=== PATIENT | male | born 1945 | race Caucasian/White ===

== ENCOUNTER 2021-05-13 15:19 | Emergency (ER) | payer OTHER ==
[2021-05-13] MEDS ORDERED: Sodium Chloride 0.9% 10 ML Syringe FLUSH PRN (16:00)
[2021-05-13] MEDS ORDERED: 50% Dextrose in Water 50 ML Syringe IVPUSH STA (16:03)
[2021-05-13] MEDS ORDERED: Sodium Chloride 0.9% 1,000 ML IV SCH (16:15)
--- NOTE | 2021-05-13 16:38 | EDM.PDOC ---
ED HPI GENERAL MEDICAL PROBLEM - General Stated Complaint: DIFFICULTY BREATHING Time Seen by Provider: 05/13/21 15:25 Source of Information: Reports: Patient, Family History Limitations: Reports: Altered Mental Status - History of Present Illness INITIAL COMMENTS - FREE TEXT/NARRATIVE: Patient is a 75 YO WM who presented to the ED via EMS because of coughing, dyspnea and weakness. He has been coughing for 1 month now which is productive of whitish phlegm. The dyspnea was just for the past 3-4 days and is getting worse. He was hypoxemic with O2S of 87% on RA. He denies having any chest pain, nausea, vomiting. There is no fever, chills, changes in bowel movements or urinary symptoms. - Related Data Allergies Allergy/AdvReac Type Severity Reaction Status Date / Time No Known Allergies Allergy Verified 05/13/21 17:33 Home Meds: Home Meds glipiZIDE [Glucotrol XL] 1 tab PO DAILY 05/13/21 [History] metFORMIN [Glucophage] 1 tab PO DAILY 05/13/21 [History] ED ROS GENERAL - Review of Systems Review Of Systems: See Below Constitutional: Reports: Weakness HEENT: Reports: No Symptoms Respiratory: Reports: Shortness of Breath, Cough Cardiovascular: Reports: No Symptoms, Chest Pain Endocrine: Reports: Low Glucose GI/Abdominal: Reports: No Symptoms : Reports: No Symptoms Musculoskeletal: Reports: No Symptoms Skin: Reports: No Symptoms Neurological: Reports: Confusion Psychiatric: Reports: No Symptoms Hematologic/Lymphatic: Reports: No Symptoms ED EXAM, GENERAL - Physical Exam Exam: See Below Exam Limited By: No Limitations General Appearance: Other (comfused) Ears: Normal External Exam, Normal Canal Nose: Normal Inspection, Normal Mucosa, No Blood Throat/Mouth: Normal Inspection, Normal Lips, Normal Teeth Head: Atraumatic, Normocephalic Neck: Normal Inspection, Supple, Non-Tender, Full Range of Motion Respiratory/Chest: Decreased Breath Sounds, Rhonchi Cardiovascular: Normal Peripheral Pulses, Regular Rate, Rhythm, No Edema, No JVD, No Murmur GI/Abdominal: Normal Bowel Sounds, Soft, Non-Tender, No Organomegaly Extremities: Normal Inspection, Normal Range of Motion, Non-Tender, No Pedal Edema Neurological: Alert, Oriented, CN II-XII Intact, Normal Cognition Skin Exam: Warm #1 Interpretation EKG Date: 05/13/21 Time: 15:24 Rhythm: NSR Rate (Beats/Min): 96 Zenia: Normal P-Wave: Present QRS: Normal ST-T: Normal QT: Normal Comparison: NA - No Prior EKG EKG Interpretation Comments: NSR PAC's Course - Vital Signs Text/Narrative:: Lab/EKG/CXR result was reviewed and discussed with patient NS 1 L in 2 hours O2 VNC D50 1 amp IV x1 Zosyn 4.5 gm IV Code Status: Full code Case discussed with Dr Fisher who agreed with athe above plan of care - Orders/Labs/Meds Orders: Active Orders 24 hr Category Date Time Status EKG Documentation Completion [RC] ASDIRECTED Care 05/13/21 16:02 Active Slater Catheter Insertion [Insert Urinary Catheter] [OM. Care 05/13/21 17:15 Ordered PC] Q24H Urinary Catheter Assessment [RC] QSHIFT Care 05/13/21 17:12 Active Chest 1V Frontal [CR] Stat Exams 05/13/21 16:00 Taken CORONAVIRUS COVID-19 MILLER [MOLEC] Stat Lab 05/13/21 17:26 Received CULTURE BLOOD [BC] Urgent Lab 05/13/21 16:20 Received CULTURE BLOOD [BC] Urgent Lab 05/13/21 16:30 Received Sodium Chloride 0.9% [Normal Saline] 1,000 ml Med 05/13/21 16:15 Active IV ASDIRECTED Sodium Chloride 0.9% [Saline Flush] Med 05/13/21 16:00 Active 10 ml FLUSH ASDIRECTED PRN Blood Culture x2 Reflex Set [OM.PC] Urgent Oth 05/13/21 16:00 Ordered Saline Lock Insert [OM.PC] Routine Oth 05/13/21 16:00 Ordered EKG 12 Lead [EK] Routine Ther 05/13/21 16:00 Ordered Medication Orders Sodium Chloride (Normal Saline) 1,000 mls @ 500 mls/hr IV ASDIRECTED KATIE Sodium Chloride (Sodium Chloride 0.9% 10 Ml Syringe) 10 ml FLUSH ASDIRECTED PRN PRN Reason: Keep Vein Open Labs: Laboratory Tests 05/13/21 05/13/21 05/13/21 Range/Units 15:58 16:20 16:20 WBC 10.4 H (3.2-10.1) x10-3/uL RBC 4.83 (3.90-5.90) x10(6)uL Hgb 15.5 (12.9-17.7) g/dL Hct 48.4 (38.3-50.1) % MCV 100.2 H (80.8-98.7) fL MCH 32.1 (27.0-33.3) pg MCHC 32.1 (28.7-35.3) g/dL RDW 16.0 H (12.4-15.0) % Plt Count 128 (117-477) x10(3)uL MPV 9.0 (6.7-11.0) fL Neut % (Auto) 75.6 H (40.3-71.8) % Lymph % (Auto) 15.2 L (15.8-45.3) % Carson % (Auto) 9.1 (5.5-15.2) % Eos % (Auto) 0.0 L (0.1-6.8) % Baso % (Auto) 0.1 L (0.3-3.8) % Neut # (Auto) 7.9 H (1.7-6.9) x10-3/uL Lymph # (Auto) 1.6 (0.5-4.5) x10-3/uL Carson # (Auto) 0.9 (0.0-1.2) x10-3/uL Eos # (Auto) 0.0 (0.0-0.6) x10-3/uL Baso # (Auto) 0.0 (0.0-0.3) x10-3/uL POC VBG pH (7.32-7.43) pH Units POC VBG pCO2 (41-51) mmHg POC VBG HCO3 (21-29) mmol/L VBG Base Excess (-2-3) mmol/L O2 Delivery Device Sodium 141 (135-145) mmol/L Potassium 5.0 (3.5-5.3) mmol/L Chloride 98 L (100-110) mmol/L Carbon Dioxide 29 (21-32) mmol/L BUN 103 H (7-18) mg/dL Creatinine 5.4 H* (0.70-1.30) mg/dL Est Cr Clr Drug Dosing TNP Estimated GFR (MDRD) 10 L (>60) BUN/Creatinine Ratio 19.1 (9-20) Glucose 157 H (80-116) mg/dL POC Glucose 58 L (80-116) mg/dL Lactic Acid (0.4-2.0) mmol/L Calcium 8.6 (8.6-10.2) mg/dL Total Bilirubin 1.2 (0.1-1.3) mg/dL AST 29 H (5-25) IU/L ALT 40 H (12-36) U/L Alkaline Phosphatase 73 (56-112) IU/L Troponin I (4.0-60.3) pg/mL C-Reactive Protein (0.5-0.9) mg/dL NT-Pro-B Natriuret Pep (<=125) pg/mL Total Protein 7.1 (6.0-8.0) g/dL Albumin 2.7 L (3.2-4.6) g/dL Globulin 4.4 g/dL Albumin/Globulin Ratio 0.6 Urine Color (YELLOW) Urine Appearance (CLEAR) Urine pH (5.0-6.5) Ur Specific [place] (1.010-1.025) Urine Protein (NEGATIVE) mg/dL Urine Glucose (UA) (NORMAL) mg/dL Urine Ketones (NEGATIVE) mg/dL Urine Occult Blood (NEGATIVE) Urine Nitrite (NEGATIVE) Urine Bilirubin (NEGATIVE) Urine Urobilinogen (NEGATIVE) mg/dL Ur Leukocyte Esterase (NEGATIVE) U Hyaline Cast (Auto) (NS) Urine RBC (0-5) Urine WBC (0-5) Ur Squamous Epith Cells (NS,R,O) Urine Bacteria (NS) 05/13/21 05/13/21 05/13/21 Range/Units 16:20 16:20 16:20 WBC (3.2-10.1) x10-3/uL RBC (3.90-5.90) x10(6)uL Hgb (12.9-17.7) g/dL Hct (38.3-50.1) % MCV (80.8-98.7) fL MCH (27.0-33.3) pg MCHC (28.7-35.3) g/dL RDW (12.4-15.0) % Plt Count (117-477) x10(3)uL MPV (6.7-11.0) fL Neut % (Auto) (40.3-71.8) % Lymph % (Auto) (15.8-45.3) % Carson % (Auto) (5.5-15.2) % Eos % (Auto) (0.1-6.8) % Baso % (Auto) (0.3-3.8) % Neut # (Auto) (1.7-6.9) x10-3/uL Lymph # (Auto) (0.5-4.5) x10-3/uL Carson # (Auto) (0.0-1.2) x10-3/uL Eos # (Auto) (0.0-0.6) x10-3/uL Baso # (Auto) (0.0-0.3) x10-3/uL POC VBG pH 7.32 (7.32-7.43) pH Units POC VBG pCO2 52 H (41-51) mmHg POC VBG HCO3 27 (21-29) mmol/L VBG Base Excess -0 (-2-3) mmol/L O2 Delivery Device Nasal cannula Sodium (135-145) mmol/L Potassium (3.5-5.3) mmol/L Chloride (100-110) mmol/L Carbon Dioxide (21-32) mmol/L BUN (7-18) mg/dL Creatinine (0.70-1.30) mg/dL Est Cr Clr Drug Dosing Estimated GFR (MDRD) (>60) BUN/Creatinine Ratio (9-20) Glucose (80-116) mg/dL POC Glucose (80-116) mg/dL Lactic Acid 5.4 H* (0.4-2.0) mmol/L Calcium (8.6-10.2) mg/dL Total Bilirubin (0.1-1.3) mg/dL AST (5-25) IU/L ALT (12-36) U/L Alkaline Phosphatase (56-112) IU/L Troponin I 640.5 H* (4.0-60.3) pg/mL C-Reactive Protein 8.3 H* (0.5-0.9) mg/dL NT-Pro-B Natriuret Pep 20133 H* (<=125) pg/mL Total Protein (6.0-8.0) g/dL Albumin (3.2-4.6) g/dL Globulin g/dL Albumin/Globulin Ratio Urine Color (YELLOW) Urine Appearance (CLEAR) Urine pH (5.0-6.5) Ur Specific [place] (1.010-1.025) Urine Protein (NEGATIVE) mg/dL Urine Glucose (UA) (NORMAL) mg/dL Urine Ketones (NEGATIVE) mg/dL Urine Occult Blood (NEGATIVE) Urine Nitrite (NEGATIVE) Urine Bilirubin (NEGATIVE) Urine Urobilinogen (NEGATIVE) mg/dL Ur Leukocyte Esterase (NEGATIVE) U Hyaline Cast (Auto) (NS) Urine RBC (0-5) Urine WBC (0-5) Ur Squamous Epith Cells (NS,R,O) Urine Bacteria (NS) 05/13/21 05/13/21 Range/Units 17:20 17:22 WBC (3.2-10.1) x10-3/uL RBC (3.90-5.90) x10(6)uL Hgb (12.9-17.7) g/dL Hct (38.3-50.1) % MCV (80.8-98.7) fL MCH (27.0-33.3) pg MCHC (28.7-35.3) g/dL RDW (12.4-15.0) % Plt Count (117-477) x10(3)uL MPV (6.7-11.0) fL Neut % (Auto) (40.3-71.8) % Lymph % (Auto) (15.8-45.3) % Carson % (Auto) (5.5-15.2) % Eos % (Auto) (0.1-6.8) % Baso % (Auto) (0.3-3.8) % Neut # (Auto) (1.7-6.9) x10-3/uL Lymph # (Auto) (0.5-4.5) x10-3/uL Carson # (Auto) (0.0-1.2) x10-3/uL Eos # (Auto) (0.0-0.6) x10-3/uL Baso # (Auto) (0.0-0.3) x10-3/uL POC VBG pH (7.32-7.43) pH Units POC VBG pCO2 (41-51) mmHg POC VBG HCO3 (21-29) mmol/L VBG Base Excess (-2-3) mmol/L O2 Delivery Device Sodium (135-145) mmol/L Potassium (3.5-5.3) mmol/L Chloride (100-110) mmol/L Carbon Dioxide (21-32) mmol/L BUN (7-18) mg/dL Creatinine (0.70-1.30) mg/dL Est Cr Clr Drug Dosing Estimated GFR (MDRD) (>60) BUN/Creatinine Ratio (9-20) Glucose (80-116) mg/dL POC Glucose 113 (80-116) mg/dL Lactic Acid (0.4-2.0) mmol/L Calcium (8.6-10.2) mg/dL Total Bilirubin (0.1-1.3) mg/dL AST (5-25) IU/L ALT (12-36) U/L Alkaline Phosphatase (56-112) IU/L Troponin I (4.0-60.3) pg/mL C-Reactive Protein (0.5-0.9) mg/dL NT-Pro-B Natriuret Pep (<=125) pg/mL Total Protein (6.0-8.0) g/dL Albumin (3.2-4.6) g/dL Globulin g/dL Albumin/Globulin Ratio Urine Color [place] (YELLOW) Urine Appearance Clear (CLEAR) Urine pH 5.0 (5.0-6.5) Ur Specific Brogan 1.025 (1.010-1.025) Urine Protein Trace (NEGATIVE) mg/dL Urine Glucose (UA) Normal (NORMAL) mg/dL Urine Ketones Negative (NEGATIVE) mg/dL Urine Occult Blood Trace (NEGATIVE) Urine Nitrite Negative (NEGATIVE) Urine Bilirubin Small H (NEGATIVE) Urine Urobilinogen Normal (NEGATIVE) mg/dL Ur Leukocyte Esterase Negative (NEGATIVE) U Hyaline Cast (Auto) Few H (NS) Urine RBC 0-5 (0-5) Urine WBC 0-5 (0-5) Ur Squamous Epith Cells Few H (NS,R,O) Urine Bacteria Few H (NS) Meds: Medications Generic Name Dose Route Start Last Admin Trade Name Freq PRN Reason Stop Dose Admin Sodium Chloride 1,000 mls @ 500 mls/hr 05/13/21 16:15 Normal Saline IV ASDIRECTED KATIE Sodium Chloride 10 ml 07/16/21 16:00 Sodium Chloride 0.9% 10 Ml Syringe FLUSH ASDIRECTED PRN Keep Vein Open Discontinued Medications Generic Name Dose Route Start Last Admin Trade Name Clif PRN Reason Stop Dose Admin Dextrose/Water 50 ml 05/13/21 16:03 50% Dextrose In Water 50 Ml Syringe IVPUSH 05/13/21 16:04 NOW STA Piperacillin Sod/Tazobactam 100 mls @ 200 mls/hr 05/13/21 17:06 Sod 4.5 gm/ Sodium Chloride IV 05/13/21 17:35 NOW STA Departure - Departure Time of Disposition: 17:00 Disposition: DC/Tfer to Acute Hospital 02 Condition: Good Clinical Impression: Sepsis, Pneumonia, Dehydration, SMILEY (acute kidney injury), Acute coronary syndrome, Diabetes mellitus - Discharge Information Referrals: PCP,None [Primary Care Provider] - - My Orders Last 24 Hours: My Active Orders 05/13/21 16:00 Chest 1V Frontal [CR] Stat Sodium Chloride 0.9% [Saline Flush] 10 ml FLUSH ASDIRECTED PRN Blood Culture x2 Reflex Set [OM.PC] Urgent Saline Lock Insert [OM.PC] Routine EKG 12 Lead [EK] Routine 05/13/21 16:02 EKG Documentation Completion [RC] ASDIRECTED 05/13/21 16:15 Sodium Chloride 0.9% [Normal Saline] 1,000 ml IV ASDIRECTED 05/13/21 16:20 CULTURE BLOOD [BC] Urgent 05/13/21 16:30 CULTURE BLOOD [BC] Urgent 05/13/21 17:12 Urinary Catheter Assessment [RC] QSHIFT 05/13/21 17:15 Slater Catheter Insertion [Insert Urinary Catheter] [OM.PC] Q24H 05/13/21 17:26 CORONAVIRUS COVID-19 MILLER [MOLEC] Stat - Assessment/Plan Last 24 Hours: My Active Orders 05/13/21 16:00 Chest 1V Frontal [CR] Stat Sodium Chloride 0.9% [Saline Flush] 10 ml FLUSH ASDIRECTED PRN Blood Culture x2 Reflex Set [OM.PC] Urgent Saline Lock Insert [OM.PC] Routine EKG 12 Lead [EK] Routine 05/13/21 16:02 EKG Documentation Completion [RC] ASDIRECTED 05/13/21 16:15 Sodium Chloride 0.9% [Normal Saline] 1,000 ml IV ASDIRECTED 05/13/21 16:20 CULTURE BLOOD [BC] Urgent 05/13/21 16:30 CULTURE BLOOD [BC] Urgent 05/13/21 17:12 Urinary Catheter Assessment [RC] QSHIFT 05/13/21 17:15 Slater Catheter Insertion [Insert Urinary Catheter] [OM.PC] Q24H 05/13/21 17:26 CORONAVIRUS COVID-19 MILLER [MOLEC] Stat
[2021-05-13 16:51] LABS: HCO3 VENOUS,POC 27 mmol/L (21-29); PCO2 VENOUS,POC 52 mmHg (41-51); PH VENOUS,POC 7.32 pH Units (7.32-7.43)
[2021-05-13] MEDS ORDERED: Piperacillin/Tazobactam 4.5 GM in Sodium Chloride 0.9% 100 ML IV STA (17:06)
[2021-05-13] MEDS ORDERED: Lidocaine 2% Viscous Solution 15 ML Cup PO ONE (18:31)
== END 2021-05-13 20:24 ==
LOC: FB.ED 15:19
DX: A41.9 Sepsis, unspecified organism (principal); J18.9 Pneumonia, unspecified organism; N17.9 Acute kidney failure, unspecified; E11.9 Type 2 diabetes mellitus without complications; I25.10 Atherosclerotic heart disease of native coronary artery without angina pectoris; Z79.84 Long term (current) use of oral hypoglycemic drugs
CPT/HCPCS: 36415; 51702; 71045; 80053; 81001; 82947; 83605; 83880; 84484; 85025; 86140; 87040; 87635; 93005; 96365; 96375; 99285; A9270; J2543; J7030; U0002